=== PATIENT | female | born 1960 | race Caucasian/White ===

== ENCOUNTER → 2021-05-01 | Outpatient (CLI) | payer BC, OTHER ==
[~2021-05-01] VITALS: Ht 167.6 cm; Wt 51.3 kg
[~2021-05-01] MED LIST: BONIVA150 MG PO; CELEBREX 200 M200 M1 PO
[2021-05-01 08:53] VITALS: BP 115/76
--- NOTE | 2021-05-01 09:12 | NUR ---
Pain Clinic Assessment: 1. History of Osteoarthritis: NECK History of Rheumatoid Arthritis: Not Applicable 2. Height: 5 ft. 6 in. 167.6 cm. Weight: 113.0 lb. oz. 51.256 kg. Patient's BMI: 18.2 3. Vital Signs: BP: 115/76 Pulse: 74 Resp: 14 Temp: 02 Sat: 100 ECG Mon: 4. Pain Intensity: 5 5. Fall Risk: Dizziness: N Needs help standing or walking: N Fallen in the last 3 months: N Fall risk comments: 6. Patient on Blood Thinner: None 7. History of Hypertension: N 8. Opioid Therapy greater than 6 weeks: N Opiate Contract Signed: 9. Risk Assessment Tool Provided: 0-low 10. Functional Assessment Tool: 11. Recreational Drug Use: Never Drug Type: Tobacco Use: Never Smoker Tobacco Type: Amount or Packs/day: How Many Years: Alcohol Use: Yes Frequency: Weekly Quant: 2
== END ==
LOC: PAIN 03-27 08:58
PROVIDERS: ATTEND Anesthesiology Pain Medicine
DX: M54.2 Cervicalgia (principal); M79.18 Myalgia, other site; M71.58 Other bursitis, not elsewhere classified, other site; M25.511 Pain in right shoulder

== ENCOUNTER → 2021-05-19 | Outpatient (CLI) | payer BC, OTHER ==
[~2021-05-19] VITALS: Ht 167.6 cm; Wt 50.0 kg
[2021-05-19 09:54] VITALS: BP 115/80
--- NOTE | 2021-05-19 10:12 | NUR ---
Pain Clinic Assessment: 1. History of Osteoarthritis: NECK History of Rheumatoid Arthritis: Not Applicable 2. Height: 5 ft. 6 in. 167.6 cm. Weight: 110.2 lb. oz. 49.986 kg. Patient's BMI: 17.8 3. Vital Signs: BP: 115/80 Pulse: 81 Resp: 14 Temp: 02 Sat: 100 ECG Mon: 4. Pain Intensity: 0 TO 6 (WITH MOVEMENT) 5. Fall Risk: Dizziness: N Needs help standing or walking: N Fallen in the last 3 months: N Fall risk comments: - 6. Patient on Blood Thinner: None 7. History of Hypertension: N 8. Opioid Therapy greater than 6 weeks: N Opiate Contract Signed: 9. Risk Assessment Tool Provided: 0-low 10. Functional Assessment Tool: 41/ 11. Recreational Drug Use: Never Drug Type: Tobacco Use: Never Smoker Tobacco Type: Amount or Packs/day: How Many Years: Alcohol Use: Yes Frequency: Special Occasions Quant: 1
== END ==
LOC: PAIN 07:01
PROVIDERS: ATTEND Anesthesiology Pain Medicine
DX: M47.812 Spondylosis without myelopathy or radiculopathy, cervical region (principal); M71.50 Other bursitis, not elsewhere classified, unspecified site; M79.18 Myalgia, other site; F10.10 Alcohol abuse, uncomplicated; Z79.899 Other long term (current) drug therapy

== ENCOUNTER → 2021-05-29 | Outpatient (CLI) | payer BC, OTHER ==
[~2021-05-29] VITALS: Ht 167.6 cm; Wt 49.9 kg
[~2021-05-29] MED LIST changes: +PRILOSEC OTC20 MG PO
[2021-05-29 13:10] VITALS: BP 100/74
--- NOTE | 2021-05-29 13:17 | NUR ---
Pain Clinic Assessment: 1. History of Osteoarthritis: NECK History of Rheumatoid Arthritis: Not Applicable 2. Height: 5 ft. 6 in. 167.6 cm. Weight: 110.0 lb. oz. 49.896 kg. Patient's BMI: 17.8 3. Vital Signs: BP: 100/74 Pulse: 71 Resp: 14 Temp: 02 Sat: 100 ECG Mon: 4. Pain Intensity: 5 5. Fall Risk: Dizziness: N Needs help standing or walking: N Fallen in the last 3 months: N Fall risk comments: - 6. Patient on Blood Thinner: None 7. History of Hypertension: N 8. Opioid Therapy greater than 6 weeks: N Opiate Contract Signed: 9. Risk Assessment Tool Provided: 0-low 10. Functional Assessment Tool: 11. Recreational Drug Use: Never Drug Type: Tobacco Use: Never Smoker Tobacco Type: Amount or Packs/day: How Many Years: Alcohol Use: Yes Frequency: Quant:
== END | disposition home or self-care (01) ==
LOC: PAIN 12:29
PROVIDERS: ATTEND Anesthesiology Pain Medicine
DX: M79.18 Myalgia, other site (principal); M71.58 Other bursitis, not elsewhere classified, other site; M47.22 Other spondylosis with radiculopathy, cervical region; Z98.890 Other specified postprocedural states; Z79.899 Other long term (current) drug therapy